=== PATIENT | female | born 1990 | race Caucasian/White ===

== ENCOUNTER 2020-03-10 23:09 | Emergency (ER) | payer OTHER, SELFPAY ==
[2020-03-10 23:29] VITALS: BP 119/70; BP 152/92; PULSE 105; PULSE 130; RESP 22; TEMP 36.4; O2SAT 98; O2SAT 99; BMI 27.4
--- NOTE | 2020-03-10 23:52 | PC.NURSE ---
PT HAS MULTIPLE BRUISING ON ARMS FROM THE PAST 2-3 DAYS? PT DENIES HARM OR ABUSE AT HOME. PT HESITATED TO ANSWER INITIALLY. PT CRYING ANY HYPERVENTILATING. PT WANTS TO LEAVE, HAS NOT BEEN SEEN BY A PROVIDER, SHE WAS CHANGING IN BATHROOM WHEN PROVIDER ARRIVED FOR EVALUATION. PT BELONGINGS IN LOCKER 10.
--- NOTE | 2020-03-11 00:10 | XR_ITS ---
EXAMINATION: RIGHT FOOT AND RIGHT HAND CLINICAL INFORMATION: Question of glass in toes and trauma to fourth and fifth digits in the hand COMPARISON: None TECHNIQUE: 3 views right foot, 3 views right hand FINDINGS: Right foot: There is a triangular density seen in the soft tissues lateral to the base of the proximal phalanx of the fifth toe. This could certainly represent a foreign body and appears to project medially over the bone on the AP view, and is on the plantar surface of the foot in the soft tissues on the lateral view. There are some other rounded densities seen adjacent to the second and third toes but on several views, these do not appear to be within the soft tissues and may be artifact. Right hand: No bone joint or soft tissue abnormality is seen. XR/XR hand RT min 3V IMPRESSION: 1. Question of a triangular foreign body on the plantar surface of the foot laterally. 2. No significant abnormality seen in the hand.
--- NOTE | 2020-03-11 00:10 | XR_ITS ---
EXAMINATION: RIGHT FOOT AND RIGHT HAND CLINICAL INFORMATION: Question of glass in toes and trauma to fourth and fifth digits in the hand COMPARISON: None TECHNIQUE: 3 views right foot, 3 views right hand FINDINGS: Right foot: There is a triangular density seen in the soft tissues lateral to the base of the proximal phalanx of the fifth toe. This could certainly represent a foreign body and appears to project medially over the bone on the AP view, and is on the plantar surface of the foot in the soft tissues on the lateral view. There are some other rounded densities seen adjacent to the second and third toes but on several views, these do not appear to be within the soft tissues and may be artifact. Right hand: No bone joint or soft tissue abnormality is seen. XR/XR foot RT min 3V IMPRESSION: 1. Question of a triangular foreign body on the plantar surface of the foot laterally. 2. No significant abnormality seen in the hand.
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
[2020-03-11] MEDS: Lidocaine HCl 2 % MPF 5 ML VIAL 10 ML INFILTRATI (00:51)
--- NOTE | 2020-03-11 00:52 | PC.NURSE ---
FOREHEAD AND RIGHT FOOT CLEANED WITH SALINE AND GAUZE. PT NOW CALM AND COOPERATIVE. PT UNDERSTANDS THAT SHE CAN GO HOME AFTER SUTURES, BOYFRIEND IS IN WAITING ROOM.
--- NOTE | 2020-03-11 01:21 | PC.NURSE ---
MD AT BEDSIDE FOR PROCEDURE, SUTURES TO FOREHEAD AND TOE ON RIGHT FOOT. PT TOLERATING PROCEDURE WELL.
== END 2020-03-11 01:55 | disposition home or self-care (01) ==
PROVIDERS: Emergency Provider Emergency Medicine
DX: S01.81XA Laceration without foreign body of other part of head, initial encounter (principal); S91.311A Laceration without foreign body, right foot, initial encounter; M79.671 Pain in right foot; G44.309 Post-traumatic headache, unspecified, not intractable; F10.129 Alcohol abuse with intoxication, unspecified; Y90.9 Presence of alcohol in blood, level not specified; W01.190A Fall on same level from slipping, tripping and stumbling with subsequent striking against furniture, initial encounter; Y93.9 Activity, unspecified; Y92.009 Unspecified place in unspecified non-institutional (private) residence as the place of occurrence of the external cause; Y99.9 Unspecified external cause status
CPT/HCPCS: 12001; 12011; 73130; 73630; 99283; 99284

== ENCOUNTER 2020-03-16 14:09 | Emergency (ER) | payer OTHER, SELFPAY ==
[2020-03-16 16:04] VITALS: BP 125/75; PULSE 93; RESP 16; TEMP 36.9; O2SAT 98; BMI 25.0
--- NOTE | 2020-03-16 16:45 | XR_ITS ---
Examination: XR hand LT 2V, XR forearm LT 2V, XR elbow LT 2V Indication: injury with pain Comparison: No pertinent prior studies are currently available for comparison. Technique: 3 views left hand, 2 views of the left forearm including a lateral view of the elbow and additional targeted view of the elbow was obtained Findings: No significant elbow joint effusion. Bones are normal anatomic alignment. I do not appreciate any acute fracture or dislocation within the elbow, forearm, or hand. Bones appear to be intact. No radiopaque foreign body seen. There does appear to be mild soft tissue swelling along the proximal forearm XR/XR hand LT 2V Impression: Mild soft tissue swelling along the proximal forearm but no underlying acute bony abnormality.
--- NOTE | 2020-03-16 16:45 | XR_ITS ---
Examination: XR hand LT 2V, XR forearm LT 2V, XR elbow LT 2V Indication: injury with pain Comparison: No pertinent prior studies are currently available for comparison. Technique: 3 views left hand, 2 views of the left forearm including a lateral view of the elbow and additional targeted view of the elbow was obtained Findings: No significant elbow joint effusion. Bones are normal anatomic alignment. I do not appreciate any acute fracture or dislocation within the elbow, forearm, or hand. Bones appear to be intact. No radiopaque foreign body seen. There does appear to be mild soft tissue swelling along the proximal forearm XR/XR forearm LT 2V Impression: Mild soft tissue swelling along the proximal forearm but no underlying acute bony abnormality.
--- NOTE | 2020-03-16 16:45 | XR_ITS ---
Examination: XR hand LT 2V, XR forearm LT 2V, XR elbow LT 2V Indication: injury with pain Comparison: No pertinent prior studies are currently available for comparison. Technique: 3 views left hand, 2 views of the left forearm including a lateral view of the elbow and additional targeted view of the elbow was obtained Findings: No significant elbow joint effusion. Bones are normal anatomic alignment. I do not appreciate any acute fracture or dislocation within the elbow, forearm, or hand. Bones appear to be intact. No radiopaque foreign body seen. There does appear to be mild soft tissue swelling along the proximal forearm XR/XR elbow LT 2V Impression: Mild soft tissue swelling along the proximal forearm but no underlying acute bony abnormality.
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
--- NOTE | 2020-03-16 16:51 | PC.NURSE ---
dr ramos in to assess, remove sutures from forehead and foot, wounds cleansed with ns, betadine, bacitracin/bandaid to forehead and bacitracin/telfa/gauze wrap to foot wound , awaiting xrays
== END 2020-03-16 17:59 | disposition home or self-care (01) ==
PROVIDERS: Emergency Provider Emergency Medicine
DX: S50.12XA Contusion of left forearm, initial encounter (principal); W01.190A Fall on same level from slipping, tripping and stumbling with subsequent striking against furniture, initial encounter; Z48.02 Encounter for removal of sutures; Y93.89 Activity, other specified; Y92.019 Unspecified place in single-family (private) house as the place of occurrence of the external cause; Y99.9 Unspecified external cause status
CPT/HCPCS: 73070; 73090; 73120; 99283

== ENCOUNTER 2020-08-28 05:44 | Emergency (ER) | payer OTHER, SELFPAY ==
[2020-08-28 05:44] VITALS: BP 115/77; BP 141/82; PULSE 110; PULSE 112; RESP 16; TEMP 36.7; O2SAT 97; BMI 27.4
--- NOTE | 2020-08-28 06:10 | ECG_ITS ---
Test Reason : NAUSEA Blood Pressure : / mmHG Vent. Rate : 105 BPM Atrial Rate : 105 BPM P-R Int : 142 ms QRS Dur : 088 ms QT Int : 372 ms P-R-T Axes : 044 066 024 degrees QTc Int : 491 ms Sinus tachycardia Otherwise normal ECG No previous ECGs available Referred By: Luis Angel Electronically Signed By:Gian Hyman
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
[2020-08-28] MEDS: 0.9 % Sodium Chloride 1,000 ML 999 ML IV (06:37)
[2020-08-28] MEDS: LORazepam 2 MG/ML VIAL 1 MG IVPUSH (06:37)
[2020-08-28 06:40] LABS: MANUAL DIFF FLAG NO
[2020-08-28 06:47] LABS: Basophils Percent Auto 0.5 % (0-2); Eosinophils Absolute Auto 0.1 X10*3/uL (0.0-0.4); Eosinophils Percent Auto 0.9 % (0-4); Hematocrit 38.9 % (37-47); Hemoglobin 13.3 g/dl (12.0-16.0); Imm Gran Abs Auto 0.02 X10*3/uL (0.00-0.03); Imm Gran Pct Auto 0.2 % (0.0-0.4); Lymphocytes Absolute Auto 1.9 X10*3/uL (1.2-4.9); Lymphocytes Percent Auto 21.6 % (20-40); Mean Corpuscular HGB Conc 34.2 g/dl (31.0-35.0); Mean Corpuscular Hemoglobin 32.1 pg (27.0-33.0); Mean Platelet Volume 9.7 fL (9.4-12.3); Monocytes Absolute Auto 0.6 X10*3/uL (0.1-1.2); Monocytes Percent Auto 7.3 % (2-11); Neutrophils Absolute Auto 5.9 X10*3/uL (2.0-8.3); Neutrophils Percent Auto 69.5 % (45-73); Platelet Count 245 X10*3/uL (160-400); Red Blood Count 4.14 X10*6/uL (4.20-5.50); Red Cell Distribution Width 12.6 % (11.0-16.0); White Blood Count 8.6 X10*3/uL (4.8-10.8)
[2020-08-28 07:12] LABS: Ethanol 196 mg/dL
[2020-08-28 07:14] VITALS: BP 130/69; PULSE 96; RESP 17; TEMP 37.1; O2SAT 96
[2020-08-28 07:19] LABS: Alanine Aminotransferase 11 U/L (0-31); Albumin Level 4.7 g/dL (3.5-5.0); Alkaline Phosphatase 62 U/L (39-117); Anion Gap 20 (12-20); Aspartate Amino Transferase 23 U/L (5-31); Bilirubin Total 0.4 mg/dL (0.0-1.0); Blood Urea Nitrogen 6 mg/dL (9-16); Calcium 9.5 mg/dL (8.4-10.2); Carbon Dioxide 19 mmol/L (22-29); Chloride 110 mmol/L (96-108); Creatinine Clr Calc Pharmacy 105.6; Estimated Glomerular Filt Rate > 60; Glucose Random 89 mg/dL (60-115); Potassium 4.3 mmol/L (3.3-5.1); Sodium 145 mmol/L (135-145); Total Protein 7.5 g/dL (6.5-8.0)
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
== END 2020-08-28 07:59 ==
PROVIDERS: Emergency Medicine Emergency Medical Services; Emergency Provider Emergency Medicine
DX: R11.0 Nausea (principal); I49.8 Other specified cardiac arrhythmias; Z79.899 Other long term (current) drug therapy
CPT/HCPCS: 36415; 80053; 82077; 82550; 85025; 93005; 96361; 96374; 96375; 99284; J2060